=== PATIENT | male | born 1955 | race Caucasian/White ===

== ENCOUNTER 2021-05-13 20:47 | Inpatient (IN) | payer MEDICARE, OTHER ==
[~2021-05-13] VITALS: Ht 177.8 cm; Wt 130.2 kg
--- NOTE | 2021-05-13 20:55 | NUR ---
MEDICALLY CLEARED BY DR MILLER.
[2021-05-13] MEDS ORDERED: CLONIDINE HCL 0.1 MG TABLET PO ONE (21:00)
[2021-05-13] MEDS ORDERED: CLONIDINE HCL 0.1 MG TABLET ONE (21:16)
--- NOTE | 2021-05-13 21:37 | NUR ---
TRANSFERED TO [facility].
[2021-05-13] MEDS ORDERED: CLON0.1T PO (21:42)
[2021-05-13] MEDS ORDERED: ZOLP5TAB8 PO (21:42)
[2021-05-13] MEDS ORDERED: DIVA500T54 PO (21:42)
[2021-05-13] MEDS ORDERED: QUET100T PO (21:42)
[2021-05-13] MEDS ORDERED: FENO145T21 PO (21:42)
[2021-05-13] MEDS ORDERED: ZOLPIDEM 5 MG TABLET PO PRN (22:30)
[2021-05-13] MEDS ORDERED: MAG HYDROX/AL HYDROX/SIMETH 30 ML LIQUID UDC PO PRN (22:30)
[2021-05-13] MEDS ORDERED: BLOOD SUGAR DIAGNOSTIC 1 EACH STRIP VI ONE (22:30)
[2021-05-13] MEDS ORDERED: MAGNESIUM HYDROXIDE 30 ML LIQUID UDC PO PRN (22:30)
[2021-05-13] MEDS ORDERED: LORAZEPAM 0.5 MG TABLET PO PRN (22:30)
[2021-05-13] MEDS ORDERED: ACETAMINOPHEN 325 MG TABLET PO PRN (22:30)
[2021-05-13 23:07] VITALS: BP 129/61
[2021-05-14] MEDS ORDERED: LEVO50TA8 PO (02:44)
[2021-05-14] MEDS ORDERED: CHOL500050 PO (02:44)
[2021-05-14] MEDS ORDERED: NICO-780 TD (02:44)
[2021-05-14] MEDS ORDERED: SITA50TA PO (02:44)
[2021-05-14] MEDS ORDERED: DIVA125C2 PO (02:44)
[2021-05-14] MEDS ORDERED: MAGN400C PO (02:44)
[2021-05-14] MEDS ORDERED: AMLO10TA59 PO (02:44)
[2021-05-14] MEDS ORDERED: LISI20TA30 PO (02:44)
[2021-05-14] MEDS ORDERED: DOCU100C36 PO (02:44)
[2021-05-14] MEDS ORDERED: BUPR-319 PO (02:44)
[2021-05-14] MEDS ORDERED: SERT50TA PO (02:44)
[2021-05-14] MEDS ORDERED: ATOR20TA PO (02:44)
[2021-05-14] MEDS ORDERED: TAMS-3 PO (02:44)
[2021-05-14] MEDS ORDERED: VIT1TABL66 PO (02:44)
[2021-05-14] MEDS ORDERED: AMIO200T5 PO (02:44)
[2021-05-14] MEDS ORDERED: CYAN-28 PO (02:44)
[2021-05-14] MEDS ORDERED: PANT40TA49 PO (02:44)
[2021-05-14] MEDS ORDERED: LEVE500T20 PO (02:44)
--- NOTE | 2021-05-14 05:10 | NUR ---
Admitting Note: Patient arrived to the unit in a gurney, on a 5150 for Danger to others as well as Grave Disability. Upon arrival patient was placed in his room, skin assessment hard to make due to patient wanting to sleep. superficially skin appears intact. Plan of care initiated, seizure precautions in addition to safety precautions in place. Vital signs stable. Will endorse medication reconciliation to the next shift. Last observed asleep in bed.
[2021-05-14] MEDS ORDERED: LORAZEPAM 0.5 MG TABLET PO PRN (09:00)
--- NOTE | 2021-05-14 09:30 | NUR ---
Gps/Supervisor Sawmill- Called Dr Kearney , left message to reconcile medications
[2021-05-14] MEDS: DIVALPROEX SPRINKLE 125 MG CAP.SPRINK PO SCH ×4 (09:35→20:04)
[2021-05-14] MEDS: SERTRALINE HCL 50 MG TABLET PO SCH (09:37)
[2021-05-14 09:41] VITALS: BP 118/76
--- NOTE | 2021-05-14 13:11 | NUR ---
Gps/Choir Accompanist-Refusing to eat lunch, refusing and ignoring staff trying to interact with him, pt. not moving, was able to administer his depakote sprinkle in icecream.
--- NOTE | 2021-05-14 14:30 | NUR ---
Gps/Trick Rodeo Rider- Teresa Guillaume DNP in to see patient, informed of the new patient last night , needed meds.reconcile, Dr Alpesh Molina to review meds.
--- NOTE | 2021-05-14 16:50 | NUR ---
Gps/Flag Car Driver- Not interactive , no verbal responses , unable to get any answers from patient, when questions asked. unable to verify vaccination/immunization history at this time.
--- NOTE | 2021-05-14 16:55 | NUR ---
Gps/Sales Training Coordinator- Called Dr Alpesh Pierce informed of the admission from last noc. still needed to reconcile medications , informed patient hx of seizure , will review.
[2021-05-14] MEDS: LORAZEPAM 1 MG TABLET PO PRN (20:04)
[2021-05-14] MEDS: QUETIAPINE FUMARATE 100 MG TABLET PO SCH (20:04)
[2021-05-14 20:47] VITALS: BP 120/61
--- NOTE | 2021-05-15 03:43 | NUR ---
Received patient at the start of the shift in bed, legs spread apart, in a diaper. When this sheet writer attempted to talk with the patient, patient was mute. Eyes closed, unable and unwilling to engage in any form of conversation. Snack offered, no reply. The patient was however medication compliant with minimal assistance. Patient chooses to be incontinent and nonverbal at this time. Safety stratiges are in place, and monitoring the patient for behavior escalation and impulsive bizarre behaviors as noted in the patients hold.
[2021-05-15] MEDS ORDERED: DEXTROSE 50% 50 ML DISP.SYRIN IV PRN (04:00)
[2021-05-15] MEDS: PANTOPRAZOLE SODIUM 40 MG TABLET.DR PO SCH (06:04)
[2021-05-15] MEDS: LEVOTHYROXINE SODIUM 50 MCG TABLET PO SCH (06:04)
[2021-05-15] MEDS: BLOOD SUGAR DIAGNOSTIC 1 EACH STRIP VI SCH ×4 (06:12→20:04)
[2021-05-15 08:00] VITALS: BP 132/47
[2021-05-15] MEDS ORDERED: CLONIDINE HCL 0.1 MG TABLET PO ONE (09:00)
[2021-05-15] MEDS: levETIRAcetam 500 MG TABLET PO SCH ×2 (09:46→20:02)
[2021-05-15] MEDS: DIVALPROEX SPRINKLE 125 MG CAP.SPRINK PO SCH ×4 (09:46→20:02)
[2021-05-15] MEDS: AMLODIPINE 10 MG TABLET PO SCH (09:46)
[2021-05-15] MEDS: LISINOPRIL 20 MG TABLET PO SCH (09:47)
[2021-05-15] MEDS: AMIODARONE HCL 200 MG TABLET PO SCH (09:47)
[2021-05-15] MEDS: SERTRALINE HCL 50 MG TABLET PO SCH (09:47)
[2021-05-15] MEDS: FENOFIBRATE NANOCRYSTALLIZED 145 MG TABLET PO SCH (09:50)
--- NOTE | 2021-05-15 10:43 | NUR ---
STACI Initial Discharge Note: Pt currently resides at [address] [address]. Per Yun and Bryce in admissions at [address] [address] ([phone]), pt is welcome back upon discharge. STACI contacted pt's sister Maru and left a voicemail to confirm discharge plan. Staci will continue to work with pt, family and MD to ensure a safe and proper discharge plan.
--- NOTE | 2021-05-15 14:00 | NUR ---
Gps/Threader Operator- Patient observed got oob to the bathroom, ambulated ind. by himself with steady gait, when asked how tall he is , he stated" i am 6'4"" . Noted bladder continence, voided x2 in the bathroom . Patient will note initiate feeding self this am, was fed , ate 100% of breakfast. Adequate fluid intake. Instructed not to remove his hospital gown. Compliant with all routine meds. Dr Stroud was in this pm, seen patient.
[2021-05-15 16:03] VITALS: BP 153/69
--- NOTE | 2021-05-15 18:26 | NUR ---
Gps/Websphere Message Broker Developer- Encouraged patient to get oob to bathroom one more time before he goes to sleep, patient got up with no known difficulty, had large bowel movement per patient, flushed the toilet , encouraged to wash his hands, after each toileting . No bladder incontinence noted , had been following simple directions .
[2021-05-15 20:00] VITALS: BP 139/49
[2021-05-15] MEDS: QUETIAPINE FUMARATE 100 MG TABLET PO SCH (20:02)
[2021-05-15] MEDS: ATORVASTATIN 20 MG TABLET PO SCH (20:02)
[2021-05-15] MEDS: TAMSULOSIN HCL 0.4 MG CAP.SR.24H PO SCH (20:03)
[2021-05-15] MEDS: LORAZEPAM 1 MG TABLET PO PRN (20:03)
[2021-05-16] MEDS: PANTOPRAZOLE SODIUM 40 MG TABLET.DR PO SCH (06:19)
[2021-05-16] MEDS: BLOOD SUGAR DIAGNOSTIC 1 EACH STRIP VI SCH ×4 (06:19→21:00)
[2021-05-16] MEDS: LEVOTHYROXINE SODIUM 50 MCG TABLET PO SCH (06:19)
--- NOTE | 2021-05-16 08:00 | NUR ---
recd patient sleeping in bed with respirations even arousable but grumpy and refusing medications , ate a little breakfast and lunch no verbal disclousure still selectively mute, monitored for safety. pqatient refused accucheck @ 11 30 sleeping deepl
[2021-05-16] MEDS: levETIRAcetam 500 MG TABLET PO SCH ×2 (09:00→20:51)
[2021-05-16] MEDS: AMLODIPINE 10 MG TABLET PO SCH (09:00)
[2021-05-16] MEDS: LISINOPRIL 20 MG TABLET PO SCH (09:00)
[2021-05-16] MEDS: FENOFIBRATE NANOCRYSTALLIZED 145 MG TABLET PO SCH (09:00)
[2021-05-16] MEDS: DIVALPROEX SPRINKLE 125 MG CAP.SPRINK PO SCH ×4 (09:00→20:51)
[2021-05-16] MEDS: AMIODARONE HCL 200 MG TABLET PO SCH (09:00)
--- NOTE | 2021-05-16 17:14 | NUR ---
patientremains selectively mute and has refused times two accucheck and all meds today by not responding and shaking his head, sleeping with un labored respirations .
--- NOTE | 2021-05-16 18:01 | NUR ---
patient remains selectively mute and non compliant with routine in bed appearring to be sleeping all shift. continue to monitor for safety.
[2021-05-16] MEDS: TAMSULOSIN HCL 0.4 MG CAP.SR.24H PO SCH (20:51)
[2021-05-16] MEDS: ATORVASTATIN 20 MG TABLET PO SCH (20:53)
[2021-05-16] MEDS ORDERED: QUETIAPINE FUMARATE 100 MG TABLET PO SCH (21:00)
[2021-05-17] MEDS: LEVOTHYROXINE SODIUM 50 MCG TABLET PO SCH (06:02)
[2021-05-17] MEDS: PANTOPRAZOLE SODIUM 40 MG TABLET.DR PO SCH (06:02)
--- NOTE | 2021-05-17 06:19 | NUR ---
GPS: rEMAIN UNCOOPERATIVE WITH NURSING CARE. REFUSED ALL MEDS V/S AND BLOOD SUGAR CHECK. ISOLATIVE LYING IN BED. SLEPT 8 HRS THROUGH THE NIGHT. CONTINUE MONITOR FOR SAFETY.
[2021-05-17] MEDS: BLOOD SUGAR DIAGNOSTIC 1 EACH STRIP VI SCH ×4 (06:28→21:00)
[2021-05-17] MEDS: DIVALPROEX SPRINKLE 125 MG CAP.SPRINK PO SCH ×4 (08:29→21:00)
[2021-05-17] MEDS: levETIRAcetam 500 MG TABLET PO SCH ×2 (08:29→21:00)
[2021-05-17] MEDS: AMLODIPINE 10 MG TABLET PO SCH (08:29)
[2021-05-17] MEDS: AMIODARONE HCL 200 MG TABLET PO SCH (08:29)
[2021-05-17] MEDS: FENOFIBRATE NANOCRYSTALLIZED 145 MG TABLET PO SCH (08:30)
[2021-05-17] MEDS: LISINOPRIL 20 MG TABLET PO SCH (08:30)
[2021-05-17] MEDS: risperiDONE 0.5 MG TABLET PO SCH ×3 (10:00→17:00)
[2021-05-17] MEDS: LORAZEPAM 0.5 MG TABLET PO SCH ×3 (10:00→17:00)
--- NOTE | 2021-05-17 16:21 | NUR ---
Received patient sleeping in his room. A/O X 3 to person, place, environment. Pt. affect is isolative, withdrawn, calm, catatonic. Patient refuses vital signs, accuchecks, medications. Ambulates independently. Self care. Emotional support provided. Fall and safety precautions implemented.
[2021-05-17] MEDS: TAMSULOSIN HCL 0.4 MG CAP.SR.24H PO SCH (21:00)
[2021-05-17] MEDS: QUETIAPINE FUMARATE 100 MG TABLET PO SCH (21:00)
[2021-05-17] MEDS: ATORVASTATIN 20 MG TABLET PO SCH (21:00)
[2021-05-18] MEDS: PANTOPRAZOLE SODIUM 40 MG TABLET.DR PO SCH (06:25)
[2021-05-18] MEDS: LEVOTHYROXINE SODIUM 50 MCG TABLET PO SCH (06:26)
[2021-05-18] MEDS: BLOOD SUGAR DIAGNOSTIC 1 EACH STRIP VI SCH ×4 (06:56→20:25)
[2021-05-18] MEDS: DIVALPROEX SPRINKLE 125 MG CAP.SPRINK PO SCH ×4 (08:05→20:24)
[2021-05-18] MEDS: risperiDONE 0.5 MG TABLET PO SCH ×3 (08:05→16:36)
[2021-05-18] MEDS: LORAZEPAM 0.5 MG TABLET PO SCH ×3 (08:06→16:36)
[2021-05-18] MEDS: AMIODARONE HCL 200 MG TABLET PO SCH (08:06)
[2021-05-18] MEDS: levETIRAcetam 500 MG TABLET PO SCH ×2 (08:06→20:24)
[2021-05-18] MEDS: AMLODIPINE 10 MG TABLET PO SCH (08:07)
[2021-05-18] MEDS: LISINOPRIL 20 MG TABLET PO SCH (08:07)
[2021-05-18] MEDS: FENOFIBRATE NANOCRYSTALLIZED 145 MG TABLET PO SCH (08:08)
--- NOTE | 2021-05-18 10:00 | NUR ---
Patient BP is 180/95, Norvasc 10 mg and Lisinopril 20 mg given as scheduled. BP is now 145/86.
--- NOTE | 2021-05-18 10:30 | NUR ---
SW Facility Contact: STACI contacted [facility] [address] [place] [address] ([phone]) and spoke with Yun who stated the pt is welcome back upon discharge.
--- NOTE | 2021-05-18 14:32 | NUR ---
Received patient sleeping in his room. A/O X 3 to person, place, environment. Pt. affect is isolative, withdrawn, cooperative, calm, labile. Compliant with medications at this time. Blood glucose is 125, no insulin needed for sliding scale. Ambulates independently. Pt. is on 14 days Magdiel ojeda faxed to court today around 09:00 am. Continent of bladder and bowel. Fall and safety precautions implemented.
[2021-05-18 16:12] VITALS: BP 148/70
[2021-05-18 16:14] VITALS: BP 180/95
[2021-05-18 16:19] VITALS: BP 145/86
[2021-05-18] MEDS: INSULIN REGULAR, HUMAN 300 UNIT/3 ML VIAL SQ PRN ×2 (17:11→20:27)
[2021-05-18 20:00] VITALS: BP 138/81
[2021-05-18] MEDS: ATORVASTATIN 20 MG TABLET PO SCH (20:24)
[2021-05-18] MEDS: QUETIAPINE FUMARATE 100 MG TABLET PO SCH (20:24)
[2021-05-18] MEDS: TAMSULOSIN HCL 0.4 MG CAP.SR.24H PO SCH (20:24)
[2021-05-19] MEDS: LEVOTHYROXINE SODIUM 50 MCG TABLET PO SCH (06:48)
[2021-05-19] MEDS: PANTOPRAZOLE SODIUM 40 MG TABLET.DR PO SCH (06:48)
[2021-05-19] MEDS: BLOOD SUGAR DIAGNOSTIC 1 EACH STRIP VI SCH ×4 (06:48→20:25)
[2021-05-19] MEDS: DIVALPROEX SPRINKLE 125 MG CAP.SPRINK PO SCH ×4 (08:39→20:24)
[2021-05-19] MEDS: levETIRAcetam 500 MG TABLET PO SCH ×2 (08:39→20:23)
[2021-05-19] MEDS: risperiDONE 0.5 MG TABLET PO SCH ×3 (08:40→17:27)
[2021-05-19] MEDS: AMLODIPINE 10 MG TABLET PO SCH (08:55)
[2021-05-19] MEDS: AMIODARONE HCL 200 MG TABLET PO SCH (08:55)
[2021-05-19] MEDS: LORAZEPAM 0.5 MG TABLET PO SCH ×3 (08:55→17:27)
[2021-05-19] MEDS: FENOFIBRATE NANOCRYSTALLIZED 145 MG TABLET PO SCH (08:56)
[2021-05-19] MEDS: LISINOPRIL 20 MG TABLET PO SCH (08:56)
[2021-05-19] MEDS: GLUCERNA SHAKE 237 ML CAN PO SCH (09:20)
--- NOTE | 2021-05-19 10:08 | NUR ---
GPS: PT RECEIVED TODAY. ALERT AND VERBALLY RESPONSIVE. DENIES ANY PAIN OR DISCOMFORT. COMPLIANT WITH CARE AND MEDICATIONS. PT SEEMS CALM AND RELAX. ATE BREAKFAST GOOD. REISE PETITION THAT WAS FILED YESTERDAY WILL BE CANCELLED BY DR MOSQUERA TODAY AM. PT AMBULATORY AND CONTINENT.
[2021-05-19] MEDS: INSULIN REGULAR, HUMAN 300 UNIT/3 ML VIAL SQ PRN ×3 (13:15→20:43)
[2021-05-19 15:50] VITALS: BP 124/67
--- NOTE | 2021-05-19 17:42 | NUR ---
GPS: PT ALERT AND ORIENTED X2. PT ISOLATIVE. DENIES PAIN OR DISCOMFORT. PT COOPERATIVE WITH CARE AND COMPLIANT WITH MEDICATIONS. PT ASKED FOR A PENCIL TO ENCIRCLE WHAT HE LIKES TO EAT FOR TOMORROW'S MENU. ABLE TO COMMUNICATE AND MAKE NEEDS KNOWN.
[2021-05-19 19:48] VITALS: BP 111/52
[2021-05-19] MEDS: ATORVASTATIN 20 MG TABLET PO SCH (20:23)
[2021-05-19] MEDS: TAMSULOSIN HCL 0.4 MG CAP.SR.24H PO SCH (20:24)
[2021-05-19] MEDS: QUETIAPINE FUMARATE 100 MG TABLET PO SCH (20:24)
--- NOTE | 2021-05-19 22:00 | NUR ---
Patient noted A/O x 3. He is noted isolative but he is able to verbalized his feelings. He is noted with fair insight into his admission to [facility]. Patient stated that he is here because he was verbally aggressive toward the staff at his SNF. he feels he did wrong. Patient is reassured for his safety. he was encourage to continue expressing his feelings. V/S stablr. safety and fall precaution in place. He was given PO fluids and snacks. BG is 142. Pt is stable on no distress.
[2021-05-20] MEDS: PANTOPRAZOLE SODIUM 40 MG TABLET.DR PO SCH (06:55)
[2021-05-20] MEDS: LEVOTHYROXINE SODIUM 50 MCG TABLET PO SCH (06:55)
[2021-05-20] MEDS: BLOOD SUGAR DIAGNOSTIC 1 EACH STRIP VI SCH ×4 (06:56→20:53)
[2021-05-20 07:30] VITALS: BP 158/62
[2021-05-20] MEDS: levETIRAcetam 500 MG TABLET PO SCH ×2 (09:09→20:52)
[2021-05-20] MEDS: LISINOPRIL 20 MG TABLET PO SCH (09:09)
[2021-05-20] MEDS: risperiDONE 0.5 MG TABLET PO SCH ×3 (09:09→17:50)
[2021-05-20] MEDS: AMLODIPINE 10 MG TABLET PO SCH (09:10)
[2021-05-20] MEDS: AMIODARONE HCL 200 MG TABLET PO SCH (09:10)
[2021-05-20] MEDS: GLUCERNA SHAKE 237 ML CAN PO SCH (09:12)
[2021-05-20] MEDS: DIVALPROEX SPRINKLE 125 MG CAP.SPRINK PO SCH ×3 (09:12→17:50)
[2021-05-20] MEDS: FENOFIBRATE NANOCRYSTALLIZED 145 MG TABLET PO SCH (09:12)
[2021-05-20 16:00] VITALS: BP 172/60
--- NOTE | 2021-05-20 16:38 | NUR ---
GPS: PT ALERT AND VERBALLY RESPONSIVE. COOPERATIVE WITH CARE AND COMPLIANT WITH MEDICATIONS. PT ISOLATIVE AND QUIET BUT RESPONDS WELL AND DO COMPREHEND. NO AGITATION. AMBULATE TO THE BATHROOM. NO EPISODE OF DISROBING OR AGITATION.
[2021-05-20] MEDS: INSULIN REGULAR, HUMAN 300 UNIT/3 ML VIAL SQ PRN ×2 (17:31→21:08)
[2021-05-20 20:00] VITALS: BP 129/68
[2021-05-20] MEDS: QUETIAPINE FUMARATE 100 MG TABLET PO SCH (20:52)
[2021-05-20] MEDS: ATORVASTATIN 20 MG TABLET PO SCH (20:52)
[2021-05-20] MEDS: TAMSULOSIN HCL 0.4 MG CAP.SR.24H PO SCH (20:53)
--- NOTE | 2021-05-20 21:30 | NUR ---
received patient in is room. He is noted A/O x 2. calm, pleasant and cooperative upon approached. He is noted Isolative but he is able to verbalized feelings. He denied SI/HI/VH/AH. he is able to verbally CFS. V/S stable BG QHS 163. given 3 units of regular insulin sliding scale. PO fluids and snacks were given. He is reassured for his safety. safety and fall precaution in place. will continue to monitor
[2021-05-21] MEDS: PANTOPRAZOLE SODIUM 40 MG TABLET.DR PO SCH (06:34)
[2021-05-21] MEDS: LEVOTHYROXINE SODIUM 50 MCG TABLET PO SCH (06:34)
[2021-05-21] MEDS: BLOOD SUGAR DIAGNOSTIC 1 EACH STRIP VI SCH ×4 (06:35→20:59)
[2021-05-21 07:30] VITALS: BP 148/76
[2021-05-21] MEDS: DIVALPROEX SPRINKLE 125 MG CAP.SPRINK PO SCH ×3 (08:17→17:34)
[2021-05-21] MEDS: levETIRAcetam 500 MG TABLET PO SCH ×2 (08:17→20:57)
[2021-05-21] MEDS: LISINOPRIL 20 MG TABLET PO SCH (08:19)
[2021-05-21] MEDS: AMIODARONE HCL 200 MG TABLET PO SCH (08:19)
[2021-05-21] MEDS: AMLODIPINE 10 MG TABLET PO SCH (08:20)
[2021-05-21] MEDS: FENOFIBRATE NANOCRYSTALLIZED 145 MG TABLET PO SCH (08:24)
[2021-05-21] MEDS: risperiDONE 1 MG TABLET PO SCH ×2 (08:25→17:34)
[2021-05-21] MEDS: GLUCERNA SHAKE 237 ML CAN PO SCH (08:26)
[2021-05-21] MEDS ORDERED: risperiDONE 0.5 MG TABLET PO SCH (09:00)
--- NOTE | 2021-05-21 09:58 | NUR ---
GPS: PT ALERT AND VERBALLY RESPONSIVE. ABLE TO MAKE NEEDS KNOWN AND DENIES ANY PAIN OR DISCOMFORT. PT ISOLATIVE IN HIS ROOM. ABLE TO MAINTAIN A CONVERSATION AND COMPREHEND WITH QUESTIONS AND ANSWERS BACK WELL. COOPERATIVE WITH CARE AND COMPLIANT WITH MEDS.
[2021-05-21] MEDS: INSULIN REGULAR, HUMAN 300 UNIT/3 ML VIAL SQ PRN ×3 (12:10→21:02)
[2021-05-21 16:00] VITALS: BP 168/71
[2021-05-21 20:00] VITALS: BP 137/64
[2021-05-21] MEDS: QUETIAPINE FUMARATE 100 MG TABLET PO SCH (20:57)
[2021-05-21] MEDS: ATORVASTATIN 20 MG TABLET PO SCH (20:57)
[2021-05-21] MEDS: TAMSULOSIN HCL 0.4 MG CAP.SR.24H PO SCH (20:57)
--- NOTE | 2021-05-22 03:24 | NUR ---
STACI Family Contact: STACI contacted pt's sister Syeda ([phone]) and left another voicemail for a call back regarding pt's discharge information to return to [facility].
[2021-05-22] MEDS: LEVOTHYROXINE SODIUM 50 MCG TABLET PO SCH (06:06)
[2021-05-22] MEDS: PANTOPRAZOLE SODIUM 40 MG TABLET.DR PO SCH (06:07)
[2021-05-22] MEDS: BLOOD SUGAR DIAGNOSTIC 1 EACH STRIP VI SCH ×4 (06:13→20:18)
[2021-05-22 07:30] VITALS: BP 150/53
[2021-05-22] MEDS: DIVALPROEX SPRINKLE 125 MG CAP.SPRINK PO SCH ×3 (08:24→16:23)
[2021-05-22] MEDS: levETIRAcetam 500 MG TABLET PO SCH ×2 (08:24→20:17)
[2021-05-22] MEDS: risperiDONE 1 MG TABLET PO SCH ×2 (08:24→16:24)
[2021-05-22] MEDS: LISINOPRIL 20 MG TABLET PO SCH (08:25)
[2021-05-22] MEDS: AMLODIPINE 10 MG TABLET PO SCH (08:25)
[2021-05-22] MEDS: AMIODARONE HCL 200 MG TABLET PO SCH (08:26)
[2021-05-22] MEDS: GLUCERNA SHAKE 237 ML CAN PO SCH (08:28)
[2021-05-22] MEDS: FENOFIBRATE NANOCRYSTALLIZED 145 MG TABLET PO SCH (08:28)
--- NOTE | 2021-05-22 11:29 | NUR ---
Gps/Cisco Engineer- Had been compliant with his routine medications, Isolative, stayed in his room in bed during the day, enc. participation in his group tx
[2021-05-22 16:49] VITALS: BP 149/62
[2021-05-22] MEDS: ATORVASTATIN 20 MG TABLET PO SCH (20:17)
[2021-05-22] MEDS: QUETIAPINE FUMARATE 100 MG TABLET PO SCH (20:17)
[2021-05-22] MEDS: TAMSULOSIN HCL 0.4 MG CAP.SR.24H PO SCH (20:17)
[2021-05-22] MEDS: INSULIN REGULAR, HUMAN 300 UNIT/3 ML VIAL SQ PRN (20:27)
[2021-05-22 20:49] VITALS: BP 155/58
[2021-05-23] MEDS: PANTOPRAZOLE SODIUM 40 MG TABLET.DR PO SCH (06:00)
[2021-05-23] MEDS: LEVOTHYROXINE SODIUM 50 MCG TABLET PO SCH (06:00)
[2021-05-23] MEDS: BLOOD SUGAR DIAGNOSTIC 1 EACH STRIP VI SCH ×4 (06:12→21:05)
[2021-05-23 07:34] VITALS: BP 117/51
[2021-05-23] MEDS: levETIRAcetam 500 MG TABLET PO SCH ×2 (08:14→20:56)
[2021-05-23] MEDS: DIVALPROEX SPRINKLE 125 MG CAP.SPRINK PO SCH ×3 (08:14→16:13)
[2021-05-23] MEDS: LISINOPRIL 20 MG TABLET PO SCH (08:15)
[2021-05-23] MEDS: AMIODARONE HCL 200 MG TABLET PO SCH (08:16)
[2021-05-23] MEDS: risperiDONE 1 MG TABLET PO SCH ×2 (08:16→16:13)
[2021-05-23] MEDS: GLUCERNA SHAKE 237 ML CAN PO SCH (08:17)
[2021-05-23] MEDS: AMLODIPINE 10 MG TABLET PO SCH (08:17)
[2021-05-23] MEDS: FENOFIBRATE NANOCRYSTALLIZED 145 MG TABLET PO SCH (08:18)
[2021-05-23] MEDS: INSULIN REGULAR, HUMAN 300 UNIT/3 ML VIAL SQ PRN ×2 (12:05→20:59)
[2021-05-23 16:46] VITALS: BP 164/82
[2021-05-23 19:13] VITALS: BP 159/68
[2021-05-23 20:00] VITALS: BP 160/63
[2021-05-23] MEDS ORDERED: hydrALAZINE HCL 25 MG TABLET PO PRN (20:15)
[2021-05-23] MEDS: ATORVASTATIN 20 MG TABLET PO SCH (20:56)
[2021-05-23] MEDS: TAMSULOSIN HCL 0.4 MG CAP.SR.24H PO SCH (20:56)
[2021-05-23] MEDS: QUETIAPINE FUMARATE 100 MG TABLET PO SCH (20:56)
[2021-05-23 23:00] VITALS: BP 132/63
--- NOTE | 2021-05-24 04:39 | NUR ---
Received to care, lying in bed, pleasant upon approach. No interactions with peers, stayed in his room, all night. He was compliant with his medications, and snack. He slept well throughout the night, and remains asleep. No distress noted.
[2021-05-24] MEDS: PANTOPRAZOLE SODIUM 40 MG TABLET.DR PO SCH (06:11)
[2021-05-24] MEDS: LEVOTHYROXINE SODIUM 50 MCG TABLET PO SCH (06:11)
[2021-05-24] MEDS: BLOOD SUGAR DIAGNOSTIC 1 EACH STRIP VI SCH ×4 (06:12→20:30)
[2021-05-24 07:30] VITALS: BP 178/80
[2021-05-24] MEDS: DIVALPROEX SPRINKLE 125 MG CAP.SPRINK PO SCH ×3 (08:49→17:08)
[2021-05-24] MEDS: levETIRAcetam 500 MG TABLET PO SCH ×2 (08:49→20:29)
[2021-05-24] MEDS: AMLODIPINE 10 MG TABLET PO SCH (08:50)
[2021-05-24] MEDS: LISINOPRIL 20 MG TABLET PO SCH (08:50)
[2021-05-24] MEDS: risperiDONE 1 MG TABLET PO SCH ×2 (08:50→17:07)
[2021-05-24] MEDS: GLUCERNA SHAKE 237 ML CAN PO SCH (08:51)
[2021-05-24] MEDS: AMIODARONE HCL 200 MG TABLET PO SCH (08:51)
[2021-05-24] MEDS: FENOFIBRATE NANOCRYSTALLIZED 145 MG TABLET PO SCH (08:52)
[2021-05-24 16:00] VITALS: BP 124/68
[2021-05-24 20:00] VITALS: BP 143/44
[2021-05-24] MEDS: ATORVASTATIN 20 MG TABLET PO SCH (20:29)
[2021-05-24] MEDS: TAMSULOSIN HCL 0.4 MG CAP.SR.24H PO SCH (20:29)
[2021-05-24] MEDS: QUETIAPINE FUMARATE 100 MG TABLET PO SCH (20:29)
[2021-05-24] MEDS: INSULIN REGULAR, HUMAN 300 UNIT/3 ML VIAL SQ PRN (20:33)
--- NOTE | 2021-05-24 21:30 | NUR ---
received patient in his room in bed. he is noted awake A/O x 2. he is able to verbalized feelings. patient noted calm and pleasant upon approached. he remains compliant with medication regiment diet and plan of care. continue isolative, but he denied SI/HI/VH/AH. he is able to verbally CFS. PO fluids and snacks were given. V/S stable. patient is reassured for his safety. safety and fall precaution in place. will continue to monitor.
[2021-05-25] MEDS: LEVOTHYROXINE SODIUM 50 MCG TABLET PO SCH (06:45)
[2021-05-25] MEDS: PANTOPRAZOLE SODIUM 40 MG TABLET.DR PO SCH (06:45)
[2021-05-25] MEDS: BLOOD SUGAR DIAGNOSTIC 1 EACH STRIP VI SCH ×2 (06:48→12:11)
[2021-05-25 07:41] VITALS: BP 143/62
[2021-05-25] MEDS ORDERED: QUET100T32 PO (08:27)
[2021-05-25] MEDS ORDERED: RISP1TAB7 PO (08:27)
[2021-05-25] MEDS ORDERED: DIVA125C2 PO (08:27)
[2021-05-25 09:02] VITALS: BP 143/62
[2021-05-25] MEDS: LISINOPRIL 20 MG TABLET PO SCH (09:02)
[2021-05-25] MEDS: AMLODIPINE 10 MG TABLET PO SCH (09:02)
[2021-05-25] MEDS: risperiDONE 1 MG TABLET PO SCH (09:02)
[2021-05-25] MEDS: levETIRAcetam 500 MG TABLET PO SCH (09:02)
[2021-05-25] MEDS: GLUCERNA SHAKE 237 ML CAN PO SCH (09:03)
[2021-05-25] MEDS: AMIODARONE HCL 200 MG TABLET PO SCH (09:03)
[2021-05-25] MEDS: DIVALPROEX SPRINKLE 125 MG CAP.SPRINK PO SCH ×2 (09:05→12:23)
[2021-05-25] MEDS: FENOFIBRATE NANOCRYSTALLIZED 145 MG TABLET PO SCH (09:07)
--- NOTE | 2021-05-25 10:41 | NUR ---
STACI Discharge Note: Pt will be discharged to [facility] [address] [place] [address] ([phone]) via FACILITY TRANSPORTATION at 1:30PM. STACI spoke with admin coordinator, Yun at the facility who states they are ready to accept the patient today. Yun reported pt will be picked up by vehicle transportation by [facility]. Pt is aware and agreeable with discharge plans. STACI left a voicemail for pt's sister, Syeda ([phone]) regarding pt's discharge plans. Pt is alert and oriented x1(name), is unable to plan for self-care at this time; however, is willing to accept care at SNF. Pt denies any suicidal or homicidal ideation. Pt will follow-up at the facility with Psychiatrist, Dr. Dominguez and Skin Fitter, Dr. Higuera. Pt presents with calm mood and congruent affect.
[2021-05-25] MEDS: INSULIN REGULAR, HUMAN 300 UNIT/3 ML VIAL SQ PRN (12:53)
--- NOTE | 2021-05-25 14:15 | NUR ---
GPS: Nursing Notes: Discharge Notes: Patient is awake and responding to his name, cooperative with nursing care, compliant with his medications, ambulatory, following staff directions, denies SI/HI, denies AH/VH, denies pain or discomfort, denies SOB, discharge to [facility] at [address] [place] [phone] , report given to nurse - CHRISTIAN Bolton, informed CHRISTIAN Dumont that Dr. Marcelo called [facility] for his prescription, picked up by facility's transportation. Patient will follow up with Dr. Dominguez (psychiatrist) and Dr. Higuera (assistant teaching professor) at the facility for aftercare.
--- NOTE | 2021-05-25 14:15 | NUR ---
GPS: Nursing Notes: Discharge Notes: Patient is awake and responding to his name, cooperative with nursing care, compliant with his medications, ambulatory, following staff directions, denies SI/HI, denies AH/VH, denies pain or discomfort, denies SOB, report given to nurse - CHRISTIAN Bolton, GPS: Nursing Notes: Discharge Notes: Patient is awake and responding to his name, cooperative with nursing care, compliant with his medications, following staff directions, A/Ox2, denies SI/HI, denies AH/VH, denies pain or discomfort, denies SOB, discharge to [facility] at [address] [place] [id number] , report given to CHRISTIAN Bolton, , Dr. Marcelo called [facility] for his prescription, informed Hoang that Dr. Marcelo called [facility] preferred pharmacy for his prescription to continue at the facility, picked up by [facility]'s transportation, instructions given to the combine driver, patient will follow up at the facility with Dr. Dominguez (psychiatrist) and Dr. Higuera (oil and gas superintendent) at the facility for aftercare. Addendum: 05/25/21 at 1613 by ANABELA WILSON LVN Disregard this note because it is incomplete, staff wrote the again.
== END 2021-05-25 14:15 | DRG 885 ==
LOC: ER 20:55 → GPS 21:28
PROVIDERS: ADMIT Psychiatry & Neurology Psychiatry; ATTEND Nurse Practitioner Acute Care
DX: F31.64 Bipolar disorder, current episode mixed, severe, with psychotic features (principal); D68.59 Other primary thrombophilia; F29 Unspecified psychosis not due to a substance or known physiological condition; G40.909 Epilepsy, unspecified, not intractable, without status epilepticus; E03.9 Hypothyroidism, unspecified; E11.9 Type 2 diabetes mellitus without complications; E78.5 Hyperlipidemia, unspecified; I10 Essential (primary) hypertension; I48.0 Paroxysmal atrial fibrillation; K21.9 Gastro-esophageal reflux disease without esophagitis; M19.90 Unspecified osteoarthritis, unspecified site; Z20.822 Contact with and (suspected) exposure to COVID-19; Z79.84 Long term (current) use of oral hypoglycemic drugs
CPT/HCPCS: 36415; 80164; A4663; J1815